=== PATIENT | male | born 1965 | race Caucasian/White ===

== ENCOUNTER 2025-07-23 12:03 | Emergency (ER) | payer MEDICAID, SELFPAY ==
[2025-07-23 12:05] VITALS: BP 147/97; PULSE 73; RESP 18; TEMP 36.6; O2SAT 98
--- NOTE | 2025-07-23 13:15 | DI.RAD_ITS ---
Exam(s) XR FINGER LT MIDDLE EXAM: XR FINGER LT MIDDLE CLINICAL HISTORY: distal finger trauma, nail gun tuft. TECHNIQUE: 2D digital imaging was performed. COMPARISON: No exams were available for comparison FINDINGS: 3 views There is significant soft tissue trauma over the distal 3rd-middle finger. There is bandage material over this area. There are no fractures at the level the tuft and distal phalanx. No metallic foreign bodies evident. There are mild degenerative changes in the DIP joint incidentally noted. Bone density normal. No osseous lesions IMPRESSION: Significant distal finger soft tissue injury but no fractures. No radiopaque foreign bodies. DATA REPOSITORY: RADIATION DOSE DELIVERED:
[2025-07-23] MEDS: Lidocaine/Epinephri/Tetracaine Topical Gel 3 ML TP (13:32)
--- NOTE | 2025-07-23 15:59 | ED.GENADUL_ITS ---
Discharge Plan Disposition Patient Disposition: Home Discharge Details Clinical Impression: Finger laceration Primary Care Provider: Ryan Suarez ED Provider: Zoraida Chowdhury Home Meds and New Rx's Prescriptions: New cephalexin 500 mg capsule 500 mg PO Q6H 7 Days Qty: 28 0RF Discharge Instructions Instructions: Wound Care ED Additional Instructions: keep wound clean and dry trim steri strips as they pull back allow to air dry in 5-7 days and allow the steri strips to stay in place as much as possible Take the antibiotics as prescribed, should you develop redness, swelling, fever, worsening pain please return immediately for reassessment Have your doctor recheck in 3 to 5 days You did believe that your tetanus is up-to-date, if you should find out that your tetanus has not been updated in the last 10 years, this should be updated by your primary care physician Discharge Data Discharge Date/Time-TO BE ENTERED AT DEPARTURE: 07/23/25 16:08 HPI General Date/Time Provider Initiated Documentation: 07/23/25 13:16 . HPI Narrative: This 60-year-old male presents with laceration to left middle finger after accidentally shooting it with a nail gun through it. states his tetanus is up-to-date. Denies any additional injuries. Related Data Home Medications ?Medication ?Instructions ?Recorded ?Confirmed cephalexin 500 mg capsule 500 mg PO Q6H 7 days #28 cap s 07/23/25 Previous Rx's ?Medication ?Instructions ?Recorded cephalexin 500 mg capsule 500 mg PO Q6H 7 days #28 cap s 07/23/25 Allergies Allergy/AdvReac Type Severity Reaction Status Date / Time No Known Allergies Allergy Unverified 07/23/25 12:08 General Stated Complaint: Laceration JAYLEN: 3 Exam Narrative Exam Narrative: Left middle finger with laceration through the tuft, cap refill intact sensation intact distally flexion and extension intact approximately half inch laceration noted flexion extension to DIP intact Course Vital Signs Vital signs: Vital Signs Temperature 36.6 C 07/23/25 12:05 Pulse 73 07/23/25 12:05 Respiratory Rate 18 07/23/25 12:05 Blood Pressure 147/97 H 07/23/25 12:05 Pulse Oximetry 98 07/23/25 12:05 Temperature 36.6 C 07/23/25 12:05 Pulse 73 07/23/25 12:05 Respiratory Rate 18 07/23/25 12:05 Blood Pressure 147/97 H 07/23/25 12:05 Pulse Oximetry 98 07/23/25 12:05 Oxygen Delivery Method Room Air 07/23/25 12:05 Oxygen Flow Rate 0 07/23/25 12:05 Pain Level 6 07/23/25 12:05 Medical Decision Making Results: Left middle finger without evidence of tuft fracture, laceration and soft tissue injury noted per radiology interpretation of my review Assessment and plan: Wound was cleansed copiously through third digit patient is requesting to avoid suture placement and states he is able to keep wound clean and dry and refrain from use at work and at home. We elected for Steri-Strips although patient is aware that this will take longer to heal. Wound was clean sed several Steri-Strips were placed and patient will leave the dressing on for the next 3 to 4 days. Soap and water were used to irrigate. Antibiotics were initiated and patient will recheck with primary care physician in 3 to 4 days. Patient discharged home in stable condition with stable vitals. [facility] All Active Problems (Updated 07/23/25 @ 15:56 by TRAVON Aviles) Finger laceration (Acute) Social History Smoking/Tobacco Use Status: Never Smoking risk assessment performed?: Yes Alcohol Intake: current Alcohol Intake frequency: a few times a week Drug use: Never Substance use type: does not use Housing: house Do you feel safe at home: Yes Do you feel safe in your relationship?: Yes
== END 2025-07-23 16:08 | disposition home or self-care (01) ==
PROVIDERS: Emergency Provider Physician Assistant; PCP Nurse Practitioner Family
DX: S61.213A Laceration without foreign body of left middle finger without damage to nail, initial encounter (principal); W29.4XXA Contact with nail gun, initial encounter
CPT/HCPCS: 99283 ×2; 73140